=== PATIENT | female | born 1985 | race Caucasian/White ===

== ENCOUNTER → 2016-10-08 | Outpatient (CLI) | payer OTHER, SELFPAY ==
--- NOTE | 2016-10-08 11:35 | REP ---
Clinical: Acute back / thoracic pain. Technique: AP, lateral, and swimmers views. Findings: Alignment and kyphosis is maintained. Vertebral bodies intact. No acute fracture / compression injury or subluxation. No degenerative changes. Paravertebral soft tissues are normal. Impression: Normal thoracic spine series. Signed by Duke Marinelli MD 10/08/2016 11:27 A
--- NOTE | 2016-10-08 11:53 | REP ---
Clinical: Acute lower back pain . Technique: AP, lateral, bilateral oblique, and coned-down views. Findings: Alignment and lordosis is maintained. The vertebral bodies including transverse process and spinous processes are intact and normal. There is no evidence for acute fracture / compression injury or subluxation. No evidence for spondylolysis or spondylolisthesis. No significant degenerative change is noted. Impression: Normal, age-appropriate lumbosacral spine radiograph series. If the patient remains symptomatic consider MRI for further investigation. Signed by Duke Marinelli MD 10/08/2016 11:45 A
== END ==
LOC: M LRY 10:08
PROVIDERS: ATTEND Nurse Practitioner Family
DX: M54.6 Pain in thoracic spine (principal); M54.5 Low back pain
CPT/HCPCS: 72072; 72110; 96372; G0463; J1885

== ENCOUNTER → 2016-12-19 | Outpatient (CLI) | payer OTHER ==
--- NOTE | 2016-12-20 16:11 | ECHO ---
DATE OF PROCEDURE: 12/19/2016 REFERRING PHYSICIAN: Sharon Hobbs INDICATION: Chest pain, unspecified. HEIGHT: 66 inches WEIGHT: 199 pounds 2D MEASUREMENTS: Aortic root: 2.9 cm Left atrium: 3.1 cm Ventricular septum: 1.00 cm Posterior wall: 1.01 cm Left ventricle diastole: 4.3 cm LVOT: 2.0 cm Inferior vena cava: 2.0 cm DOPPLER MEASUREMENTS: Aortic valve velocity: 128 cm/s LVOT velocity: 91.0 cm/s LVOT VTI: 18.7 cm Mitral E velocity: 66.6 cm/s Mitral A velocity: 57.8 cm/s Mitral deceleration time: 218 ms Trace tricuspid regurgitation. Pulmonary artery systolic pressure: 25 mmHg MITRAL ANNULAR TISSUE DOPPLER: E prime septal: 7.2 cm/s E prime lateral: 14.8 cm/s DESCRIPTION: Rhythm was sinus. Image quality was fair. This is a 2D, M-mode, color flow Doppler and pulse wave Doppler examination that included mitral annular tissue Doppler. CONCLUSIONS: 1. Normal echocardiogram Doppler. 2. Normal left ventricle internal dimensions and wall thickness. Normal regional LV wall motion and wall thickening. Normal LV systolic function. LVEF 65% by visual estimate. Normal LV diastolic function. 3. No pericardial effusion.
== END ==
LOC: M CARPUL 09:32
PROVIDERS: ATTEND Nurse Practitioner Family
DX: R07.9 Chest pain, unspecified (principal)

== ENCOUNTER → 2017-05-13 | Outpatient (CLI) | payer OTHER ==
--- NOTE | 2017-05-20 18:36 | SLEEPCENT ---
DATE OF PROCEDURE: 05/13/2017 REFERRING PHYSICIAN: Jennifer Tenorio Nocturnal polysomnography was performed for evaluation of sleep physiology in this patient with a history of excessive somnolence and nonrestorative sleep. 7 hours and 53 minutes of data were reviewed. There were 302 minutes of sleep identified. Sleep latency was quite prolonged at 112 minutes. Rapid eye movement (REM) latency was also prolonged at 140 minutes. Sleep architecture improved late in the study. There were three REM cycles noted. Overall sleep efficiency was 64.6%. The patient's electrocardiogram showed a sinus rhythm with an average heart rate of 63 beats per minute. EEG showed some baseline artifact, otherwise normal waveforms for awake and sleep. There only 17 respiratory events identified of 10 seconds in duration or greater for an apnea/hypopnea index of 3.4, which is within normal limits. The events that were seen were more frequent in the supine posture. Significant snoring was noted and respiratory related arousals when arousals from snoring were included occurred 7.5 times per hour. There were no oxygen desaturations below 90%. Some limb activity was noted. There were no oxygen desaturations below 90%. Some limb activity was noted in the EMG leads and limb movement arousal index was also mildly elevated at 7.5. IMPRESSION: 1. Mild periodic limb movement disorder (G47.61). Limb movement arousal index 7.5. 2. Snoring with snore related arousals 7.5 times per hour. RECOMMENDATION: Sleep position retraining for avoidance of the supine posture should address the respiratory events though snoring may persist. Interventions to reduce the frequency of arousals from limb activity may improve the quality of the patient's sleep. Given the lengthy sleep onset, retesting may be considered if the patient's symptoms persist as retesting has been shown to be more sensitive for identification of mild disease.
== END ==
LOC: M SLEEP 19:43
PROVIDERS: ATTEND Nurse Practitioner Adult Health
DX: G47.30 Sleep apnea, unspecified (principal)

== ENCOUNTER → 2017-08-11 | Outpatient (REF) | payer OTHER ==
[2017-08-11 18:45] LABS: APPEARANCE, URINE HAZY (CLEAR); BACTERIA, URINE AUTO 2+ (NEGATIVE); BILIRUBIN, URINE AUTO NEGATIVE (NEGATIVE); BLOOD, URINE BLOOD NEGATIVE (NEGATIVE); CALCIUM OXALATE CRYSTALS SMALL; COLOR, URINE YELLOW (YELLOW); GLUCOSE, URINE (UA) AUTO NEGATIVE (NEGATIVE); KETONE, URINE AUTO NEGATIVE (NEGATIVE); LEUKOCYTE ESTERASE, URINE AUTO 2+ (NEGATIVE); MUCUS, URINE SMALL (NEGATIVE); NITRITE, URINE AUTO NEGATIVE (NEGATIVE); PROTEIN, URINE AUTO NEGATIVE (NEGATIVE); RBC, URINE AUTO 1 /HPF (0-3); SPECIFIC GRAVITY URINE AUTO 1.026 (1.002-1.035); SQUAMOUS EPITHELIAL CELL UR AU 3 /HPF (0-6); WBC, URINE AUTO 26 /HPF (0-3)
== END ==
LOC: M SMT 16:54
DX: R35.0 Frequency of micturition (principal)
CPT/HCPCS: 81001